=== PATIENT | male | born 1975 | race American Indian/Alaskan Native ===

== ENCOUNTER 2018-04-30 02:27 | Emergency (ER) | payer OTHER ==
[2018-04-30 02:43] VITALS: BP 136/86; RESP 20; BMI 26.6
[2018-04-30] MEDS ORDERED: Phenol Topical 1.4% Throat Spray (180 ml) MT ONE (03:15)
--- NOTE | 2018-04-30 03:28 | ED PDOC ---
Arrival/HPI - General Chief Complaint: ENT Problem Time Seen by Provider: 04/30/18 02:32 Historian: Patient, Spouse - History of Present Illness Narrative History of Present Illness (Text): 04/30/18 04:10 This is a 43 yo M with PMH of Prostatitis who presents with complaint of worsening sore throat 2/2 cough x3 days. As per patient and spouse, developed a cold approx 8-9 days prior, obtained from sick son at home, with productive sputum and malaise lasting for 4-5 days. For last 3 days, sputum has resolved, but sore throat is getting worse, and he has persistent dry cough that makes his throat more sore. Presents today due to sore throat worsening to point of being unable to talk fluids or food due to throat pain. Denies emesis, inability to swallow, dyspnea, pooling of secretions. reports some hoarseness at onset of illness, improved over last 3 days concurrent with use of OTC Mucinex intermittently. Cough predominantly dry now, but chronic sensation of needing to mobilize mucous leading to cough. Denies fevers or chills, trauma, or neck stiffness. Does admit to some tenderness with palpation of trachea externally from anterior neck, otherwise full ROM without issue/tenderness/rigidity. All other ROS in 12-system review negative. PMH: as above PSH: denies Soc Hx: works for [employer] at [employer], denies tobacco/alcohol/illicits, denies workplace smoke exposure in last 2 weeks Fam Hx: denies PMD: none Time/Duration: > week Symptom Onset: Gradual Symptom Course: Worsening (x3 days) Modifying Factors (Text): 04/30/18 04:17 worse with swallowing Past Medical History - Provider Review Nursing Documentation Reviewed: Yes - Psychiatric Hx Depression: No Hx Emotional Abuse: No Hx Physical Abuse: No Hx Substance Use: No - Anesthesia Hx Anesthesia: No - Suicidal Assessment Feels Threatened In Home Enviroment: No Family/Social History - Physician Review Nursing Documentation Reviewed: Yes Family/Social History: No Known Family HX Smoking Status: Unknown If Ever Smoked Hx Alcohol Use: No Hx Substance Use: No Hx Substance Use Treatment: No Allergies/Home Meds Allergies/Adverse Reactions: Allergies No Known Allergies Allergy (Verified 04/30/18 02:48) Review of Systems - Review of Systems Constitutional: Normal. absent: Fatigue, Fevers Eyes: Normal. absent: Vision Changes ENT: Voice Changes (hoarseness at onset of illness, improving, no acute changes or worsening of voice since onset of worsening sore throat), Sore Throat ( chronically sore, worse with cough/PO intake (solid or liquid), worse with anterior neck palpation at trachea region). absent: Tinnitus, TMJ Pain, Rhinorrhea, Epistaxis, Sinus Congestion Respiratory: Cough (persisting dry cough x3-4 days). absent: Normal, SOB, Sputum, Wheezing Cardiovascular: Normal. absent: Chest Pain, Palpitations, Calf Pain, CARRERA, Syncope Gastrointestinal: Normal, Food Intolerance (due to severe pain with swallowing) . absent: Abdominal Pain, Constipation, Diarrhea, Nausea, Vomiting Genitourinary Male: Normal. absent: Dysuria Musculoskeletal: Neck Pain (neck tenderness at tracheal region anteriorly only) . absent: Normal Skin: Normal. absent: Rash Neurological: Normal. absent: Headache, Dizziness, Focal Weakness Endocrine: Normal. absent: Diaphoresis Physical Exam Vital Signs Reviewed: Yes Vital Signs Temp Pulse Resp BP Pulse Ox 04/30/18 03:56 97.9 F 81 20 98 04/30/18 02:42 106 H 20 136/86 97 Temperature: Afebrile Blood Pressure: Normal Pulse: Regular (tachycardic on arrival, but in 90's during exam and decreased to low 80's after initial tx) Appearance: Positive for: Non-Toxic, Ill-Appearing, Uncomfortable. No: Comfortable Pain Distress: Moderate Mental Status: Positive for: Alert and Oriented X 3 - Systems Exam Head: Present: Atraumatic, Normocephalic Pupils: No: Pinpoint Extroacular Muscles: Present: EOMI Conjunctiva: Present: Normal. No: Injected, Icteric Mouth: Present: Moist Mucous Membranes, Normal Lips, Normal Tounge, Normal Teeth. No: Dry, Drooling Pharnyx: Present: ERYTHEMA. No: EXUDATE, TONSILS ENLARGED, Peritonsilar Swelling, Uvular Deviation, Muffled/Hoarse Voice, Strider Nose (External): Present: Atraumatic. No: Abrasion, Laceration Nose (Internal): Present: No Active Bleeding. No: Epistaxis Neck: Present: Normal Range of Motion, MIDLINE TENDERNESS (anterior midline tenderness at tracheal region), Trachea Midline. No: JVD Respiratory/Chest: Present: Clear to Auscultation, Good Air Exchange. No: Respiratory Distress, Accessory Muscle Use, Wheezes, Decreased Breath Sounds, Rales, Rhonchi, Tachypneic, Tender to Palpation Cardiovascular: Present: Regular Rate and Rhythm, Normal S1, S2, Peripheal Pulses Present. No: Murmurs, Irregular Rhythm, Tachycardic, Bradycardic Abdomen: Present: Normal Bowel Sounds. No: Tenderness, Distention, Guarding Upper Extremity: Present: Normal Inspection, Normal ROM, NORMAL PULSES. No: Cyanosis, Edema, Tenderness, Swelling, Erythema, Deformity Lower Extremity: Present: Normal Inspection, NORMAL PULSES, Normal ROM. No: Edema, CALF TENDERNESS, Cyanosis, Tenderness, Swelling, Erythema, Deformity Neurological: Present: GCS=15, Motor Func Grossly Intact, Normal Sensory Function. No: Speech Normal (speech normal, but intentionally limited due to worsening sense of needing to cough/pain with coughing) Skin: Present: Warm, Dry, Normal Color. No: Rashes Lymphatic: No: Cervical Adenopathy Psychiatric: Present: Alert, Oriented x 3, Normal Insight, Normal Concentration , Normal Affect, Normal Mood Medical Decision Making ED Course and Treatment: 04/30/18 04:26 Ddx: post-viral bronchitis vs new onset PNA, unlikely epiglotitis given improvement in voice/no pooling of secretions -Pharynx erythamtous and red, but no exudate appreciated on exam, no acutely large tonsils causing airway obstruction -Lungs clear to exam, so less likely PNA -Decadron 10mg IM x1, Toradol 60mg IM x1, and Cloraseptic spray x1 ordered for pain, improvement in pain within 20 minutes -Discharged to home with script for Tessalon perles 200mg PO TID prn and Chloraseptic spray q2 prn. Instructed to establish with PMD or follow up in [facility] clinic within 1 week. Patient and express understanding and agreement. Pt discharged to home Seen, reviewed, and discussed with attending, Dr. Hewitt Reassessment Condition: Re-examined, Improved - Medication Orders Current Medication Orders: Discontinued Medications Dexamethasone (Decadron Inj) 10 mg IM STAT STA Stop: 04/30/18 03:17 Last Admin: 04/30/18 03:24 Dose: 10 mg Ketorolac Tromethamine (Toradol) 60 mg IM STAT STA Stop: 04/30/18 03:14 Last Admin: 04/30/18 03:28 Dose: 60 mg Phenol/Menthol (Phenaseptic 1.4% Throat [place]) 2 ml MT ONCE ONE Stop: 04/30/18 03:16 Last Admin: 04/30/18 03:29 Dose: 2 ml Disposition/Present on Arrival - Present on Arrival Any Indicators Present on Arrival: No History of DVT/PE: No History of Uncontrolled Diabetes: No Urinary Catheter: No History of Decub. Ulcer: No History Surgical Site Infection Following: None - Disposition Have Diagnosis and Disposition been Completed?: Yes Diagnosis: Bronchitis Disposition: HOME/ ROUTINE Disposition Time: :27 Patient Plan: Discharge Condition: GOOD Discharge Instructions (ExitCare): Acute Bronchitis, Adult (DC) Additional Instructions: RAYMUNDO GILMAN, thank you for letting us take care of you today. Your providers were Dr. Hewitt and Dr. Moore, and you were treated for sore throat. The emergency medical care you received today was directed at your acute symptoms. You have been given a prescription for tessalon perles (a cough medicine), please fill and take as prescribed. It may take several days for your symptoms to resolve. Return to the Emergency Department if your symptoms worsen, do not improve, or if you have any other problems. Please establish with a primary medical doctor or follow up at the [facility] within 1 week (referral provided). Bring any paperwork you were given at discharge with you along with any medications you are taking to your follow up visit. Our treatment cannot replace ongoing medical care by a primary care provider outside of the emergency department. Thank you for allowing the [facility] team to be part of your care today. If you had an X-Ray or CT scan: A Radiologist will review the ED reading if any change in treatment is needed we will contact you. If you had a blood, urine, or wound culture: It will take several days for the results, if any change in treatment is needed we will contact you. If you had an STI test: It will take 48 hours for the results. Please call after 1 week if you have not heard back. Prescriptions: Benzonatate [Tessalon Perles] 200 mg PO TID PRN #30 sgl PRN Reason: Cough Phenol/Glycerin [Chloraseptic Max [place]] 30 ml MM Q2 PRN #1 bottle PRN Reason: Sore Throat Referrals: [facility] [place] - Follow up with primary Forms: WORK NOTE
[2018-04-30 03:58] VITALS: PULSE 81; TEMP 97.9; O2SAT 98
== END 2018-04-30 03:56 | disposition home or self-care (01) ==
LOC: ED 02:27
DX: J40 Bronchitis, not specified as acute or chronic (principal)
CPT/HCPCS: 96372; 99282; J1100; J1885